=== PATIENT | male | born 1950 | race Caucasian/White ===

== ENCOUNTER 2023-02-10 14:02 | Inpatient (IN) | payer MEDICARE, OTHER ==
[~2023-02-10] VITALS: Ht 172.7 cm; Wt 97.5 kg
[2023-02-10] MEDS ORDERED: POLY17PO4 PO (14:49)
[2023-02-10] MEDS ORDERED: CARV3.12 PO (14:49)
[2023-02-10] MEDS ORDERED: TIMO10DR31 EACHEYE (14:49)
[2023-02-10] MEDS ORDERED: ATOR40TA PO (14:49)
[2023-02-10] MEDS ORDERED: AMLO2.5T2 PO (14:49)
[2023-02-10] MEDS ORDERED: FLUD0.1T3 PO (14:49)
[2023-02-10] MEDS ORDERED: SERT50TA PO (14:49)
[2023-02-10] MEDS ORDERED: TRELEGY IH (14:49)
[2023-02-10] MEDS ORDERED: FLUT16SP BNOSTRILS (14:49)
[2023-02-10] MEDS ORDERED: LOTE5DRO3 LEFTEYE (14:49)
[2023-02-10] MEDS ORDERED: ROFL500T PO (14:49)
[2023-02-10] MEDS ORDERED: PSYL3.4P6 PO (14:49)
[2023-02-10] MEDS ORDERED: DICY20TA11 PO (14:49)
[2023-02-10] MEDS ORDERED: VALA100026 PO (14:49)
[2023-02-10] MEDS ORDERED: OMEP20CA15 PO (14:49)
[2023-02-10] MEDS ORDERED: LOSA50TA39 PO (14:49)
[2023-02-10] MEDS ORDERED: MULT-1196 PO (14:49)
[2023-02-10] MEDS ORDERED: ALBU8.5H8 IH (14:49)
[2023-02-10] MEDS ORDERED: Z GUARD REMEDY 4 OZ OINT TP PRN ×2 (15:00→16:45)
[2023-02-10] MEDS ORDERED: MAG HYDROX/AL HYDROX/SIMETH 30 ML UDC PO PRN ×2 (15:00→16:45)
[2023-02-10] MEDS ORDERED: MAGNESIUM HYDROXIDE 30 ML UDC PO PRN ×2 (15:00→16:45)
[2023-02-10] MEDS ORDERED: ONDANSETRON HCL/PF 4 MG/2 ML VIAL IVP PRN ×2 (15:00→16:45)
[2023-02-10] MEDS ORDERED: ENOXAPARIN SODIUM 40 MG/0.4 ML DISP.SYRIN SQ SCH (15:00)
[2023-02-10] MEDS ORDERED: ACETAMINOPHEN 325 MG TABLET PO PRN ×2 (15:00→16:45)
[2023-02-10 15:17] LABS: CALCIUM, SERUM 8.7 mg/dL (8.5-10.1); CREATININE 0.9 mg/dL (0.6-1.3); POTASSIUM 3.7 mmol/L (3.5-5.1)
[2023-02-10 15:26] LABS: BASOPHILS % (AUTO) 0.3 % (0.0-2.0); EOSINOPHILS # (AUTO) 0.1 K/uL (0.0-0.7); EOSINOPHILS % (AUTO) 1.8 % (0.0-6.0); HEMATOCRIT 37 % (39-51); HEMOGLOBIN 12.1 g/dL (13.5-17.5); LYMPHOCYTES # (AUTO) 1.5 K/uL (0.8-4.8); LYMPHOCYTES % (AUTO) 19.7 % (20.0-44.0); MEAN CORPUSCULAR HEMOGLOBIN 29 PG (26.0-33.0); MEAN CORPUSCULAR HGB CONC 33 g/dl (31.0-36.0); MEAN CORPUSCULAR VOLUME 88 fL (80-96); MONOCYTES % (AUTO) 13.6 % (2.0-12.0); NEUTROPHILS # (AUTO) 4.8 K/uL (1.8-8.9); NEUTROPHILS % (AUTO) 64.6 % (43.0-81.0); PLATELET COUNT (AUTO) 161 K/uL (150-450); RED BLOOD CELL COUNT(AUTO) 4.17 MIL/uL (4.5-6.0); RED CELL DISTRIBUTION WIDTH 22.9 % (11.5-15.0); WHITE BLOOD COUNT (AUTO) 7.5 K/uL (4.3-11.0)
[2023-02-10 17:00] VITALS: BP 152/78; TEMP 98.2; O2SAT 99
[2023-02-10] MEDS: ENOXAPARIN SODIUM 40 MG/0.4 ML DISP.SYRIN SQ SCH (17:28)
[2023-02-10] MEDS ORDERED: VANCOMYCIN 1.5 GM in IV D5W 500ml IV ONE (18:00)
[2023-02-10 20:00] VITALS: BP 154/70; TEMP 97.9; O2SAT 98
[2023-02-10] MEDS ORDERED: ALBUTEROL SULFATE 8 GM HFA.AER.AD IH PRN (21:30)
[2023-02-10] MEDS ORDERED: POLYETHYLENE GLYCOL 3350 17 GM POWD.PACK PO PRN (21:30)
[2023-02-10] MEDS ORDERED: SERTRALINE HCL 50 MG TABLET PO PRN (21:30)
[2023-02-10] MEDS: FLUDROCORTISONE 0.1 MG TABLET PO SCH (21:43)
[2023-02-10] MEDS: ATORVASTATIN 40 MG TABLET PO SCH (21:43)
[2023-02-10] MEDS: CARVEDILOL 3.125 MG TABLET PO SCH (21:43)
[2023-02-10] MEDS ORDERED: DICYCLOMINE HCL 10 MG CAPSULE PO PRN (22:00)
[2023-02-11] MEDS ORDERED: TRAZODONE 50 MG TABLET PO ONE (00:30)
[2023-02-11] MEDS: VANCOMYCIN 1 GM in IV D5W 250ml IV SCH ×2 (06:04→17:30)
[2023-02-11 07:30] VITALS: BP 163/68; TEMP 97.7; O2SAT 98
[2023-02-11] MEDS ORDERED: ALBUTEROL FS 2.5 MG/3 ML VIAL.NEB IH PRN (07:30)
[2023-02-11] MEDS ORDERED: PANTOPRAZOLE 40 MG TABLET.DR PO SCH ×2 (07:30)
[2023-02-11] MEDS: PSYLLIUM SEED 1 PKT PACKET PO SCH ×2 (08:40→08:55)
[2023-02-11] MEDS: CARVEDILOL 3.125 MG TABLET PO SCH ×2 (08:40→16:29)
[2023-02-11] MEDS: PANTOPRAZOLE 40 MG TABLET.DR PO SCH (08:40)
[2023-02-11] MEDS: LOSARTAN POTASSIUM 50 MG TABLET PO SCH (08:41)
[2023-02-11] MEDS: FLUDROCORTISONE 0.1 MG TABLET PO SCH ×2 (08:41→16:30)
[2023-02-11] MEDS: MULTIVIT W/MINERALS 1 TAB TABLET PO SCH (08:41)
[2023-02-11] MEDS: ASPIRIN 81 MG TAB.CHEW PO SCH (08:41)
[2023-02-11] MEDS: FLUTICASONE PROPIONATE 16 GM BOTTLE NS SCH ×2 (08:43→16:40)
[2023-02-11] MEDS: TIMOLOL 0.5% SOLN OPHTH 5 ML BOTTLE EACHEYE SCH ×2 (08:43→16:40)
[2023-02-11] MEDS ORDERED: AMLODIPINE BESYLATE 2.5 MG TABLET PO SCH (09:00)
[2023-02-11] MEDS ORDERED: ROFLUMILAST 500 MCG PO SCH (09:00)
[2023-02-11] MEDS ORDERED: ATORVASTATIN 40 MG TABLET PO SCH (09:00)
[2023-02-11] MEDS ORDERED: TRELEGY IH SCH (09:00)
[2023-02-11] MEDS ORDERED: LOTEPREDNOL ETABONATE 5 ML BOTTLE LEFTEYE SCH ×2 (09:00)
[2023-02-11] MEDS ORDERED: CARVEDILOL 3.125 MG TABLET PO SCH (09:00)
[2023-02-11] MEDS ORDERED: FLUDROCORTISONE 0.1 MG TABLET PO SCH (09:00)
[2023-02-11 11:57] LABS: CALCIUM, SERUM 8.8 mg/dL (8.5-10.1); CREATININE 0.8 mg/dL (0.6-1.3); POTASSIUM 3.2 mmol/L (3.5-5.1)
[2023-02-11] MEDS: IPRATROPIUM NEB FS 0.5 MG/2.5 ML AMPUL.NEB NEB SCH ×2 (13:30→20:22)
[2023-02-11] MEDS: ALBUTEROL FS 2.5 MG/0.5 ML VIAL.NEB NEB SCH ×2 (13:30→20:22)
[2023-02-11 16:00] VITALS: BP 160/72; TEMP 98.2; O2SAT 97
[2023-02-11] MEDS: POTASSIUM CHLORIDE 20 MEQ TAB.PRT.SR PO SCH ×2 (16:29→17:30)
[2023-02-11] MEDS: ENOXAPARIN SODIUM 40 MG/0.4 ML DISP.SYRIN SQ SCH (16:31)
[2023-02-11 19:30] VITALS: BP 153/80; TEMP 97.8; O2SAT 98
[2023-02-11 20:00] VITALS: BP 153/80; TEMP 97.8; O2SAT 98
[2023-02-11 20:23] VITALS: O2SAT 96
[2023-02-11] MEDS: BUDESONIDE RESPULE INH 0.5 MG/2 ML AMPUL.NEB NEB SCH (20:23)
[2023-02-11 20:33] VITALS: O2SAT 99
[2023-02-11] MEDS: ATORVASTATIN 40 MG TABLET PO SCH (21:21)
[2023-02-12] MEDS: IPRATROPIUM NEB FS 0.5 MG/2.5 ML AMPUL.NEB NEB SCH ×3 (01:27→13:01)
[2023-02-12] MEDS: ALBUTEROL FS 2.5 MG/0.5 ML VIAL.NEB NEB SCH ×3 (01:27→13:02)
[2023-02-12 05:53] LABS: BASOPHILS % (AUTO) 0.3 % (0.0-2.0); EOSINOPHILS # (AUTO) 0.2 K/uL (0.0-0.7); EOSINOPHILS % (AUTO) 2.5 % (0.0-6.0); HEMATOCRIT 36 % (39-51); HEMOGLOBIN 12.2 g/dL (13.5-17.5); LYMPHOCYTES # (AUTO) 1.9 K/uL (0.8-4.8); LYMPHOCYTES % (AUTO) 24.1 % (20.0-44.0); MEAN CORPUSCULAR HEMOGLOBIN 30 PG (26.0-33.0); MEAN CORPUSCULAR HGB CONC 34 g/dl (31.0-36.0); MEAN CORPUSCULAR VOLUME 87 fL (80-96); MONOCYTES % (AUTO) 12.5 % (2.0-12.0); NEUTROPHILS # (AUTO) 4.7 K/uL (1.8-8.9); NEUTROPHILS % (AUTO) 60.6 % (43.0-81.0); PLATELET COUNT (AUTO) 159 K/uL (150-450); RED BLOOD CELL COUNT(AUTO) 4.11 MIL/uL (4.5-6.0); RED CELL DISTRIBUTION WIDTH 22.3 % (11.5-15.0); WHITE BLOOD COUNT (AUTO) 7.7 K/uL (4.3-11.0)
[2023-02-12 06:09] LABS: CALCIUM, SERUM 8.5 mg/dL (8.5-10.1); CARBON DIOXIDE 29 mmol/L (21-32); CHLORIDE 103 mmol/L (98-107); CREATININE 0.8 mg/dL (0.6-1.3); GLUCOSE 104 mg/dL (74-106); MAGNESIUM 2.1 mg/dL (1.8-2.4); PHOSPHORUS 3.3 mg/dL (2.5-4.9); POTASSIUM 3.2 mmol/L (3.5-5.1); SODIUM SERUM 137 mmol/L (136-145); UREA NITROGEN, BLOOD 13 mg/dL (7-18)
[2023-02-12] MEDS: VANCOMYCIN 1 GM in IV D5W 250ml IV SCH (06:30)
[2023-02-12 07:10] VITALS: O2SAT 95
[2023-02-12] MEDS: BUDESONIDE RESPULE INH 0.5 MG/2 ML AMPUL.NEB NEB SCH (07:13)
[2023-02-12 07:20] VITALS: O2SAT 100; O2SAT 98
[2023-02-12] MEDS: PANTOPRAZOLE 40 MG TABLET.DR PO SCH (07:42)
[2023-02-12 08:00] VITALS: BP 129/83; TEMP 98.2; O2SAT 100
[2023-02-12] MEDS: PSYLLIUM SEED 1 PKT PACKET PO SCH (09:00)
[2023-02-12] MEDS: MULTIVIT W/MINERALS 1 TAB TABLET PO SCH (09:23)
[2023-02-12] MEDS: FLUDROCORTISONE 0.1 MG TABLET PO SCH (09:24)
[2023-02-12] MEDS: LOSARTAN POTASSIUM 50 MG TABLET PO SCH (09:24)
[2023-02-12] MEDS: ASPIRIN 81 MG TAB.CHEW PO SCH (09:24)
[2023-02-12 09:25] VITALS: BP 129/83
[2023-02-12] MEDS: CARVEDILOL 3.125 MG TABLET PO SCH (09:25)
[2023-02-12] MEDS: FLUTICASONE PROPIONATE 16 GM BOTTLE NS SCH (09:26)
[2023-02-12] MEDS: TIMOLOL 0.5% SOLN OPHTH 5 ML BOTTLE EACHEYE SCH (09:27)
[2023-02-12] MEDS ORDERED: POTASSIUM CHLORIDE 20 MEQ POWDER PACKET PO ONE (10:00)
[2023-02-12 12:50] VITALS: O2SAT 96
[2023-02-12 13:00] VITALS: O2SAT 97; O2SAT 99
[2023-02-12] MEDS ORDERED: ASPI-1169 PO (13:40)
[2023-02-12] MEDS ORDERED: CEPH500C2 PO (13:46)
== END 2023-02-12 16:50 | disposition home health service (06) | DRG 603 ==
LOC: ER 14:08 → MED 16:51
PROVIDERS: ATTEND Nurse Practitioner Acute Care
DX: L03.115 Cellulitis of right lower limb (principal); G11.9 Hereditary ataxia, unspecified; K86.1 Other chronic pancreatitis; L03.116 Cellulitis of left lower limb; J44.9 Chronic obstructive pulmonary disease, unspecified; B19.20 Unspecified viral hepatitis C without hepatic coma; I10 Essential (primary) hypertension; Z79.51 Long term (current) use of inhaled steroids; Z79.899 Other long term (current) drug therapy; I25.10 Atherosclerotic heart disease of native coronary artery without angina pectoris; Z95.5 Presence of coronary angioplasty implant and graft; Z96.643 Presence of artificial hip joint, bilateral; Z90.49 Acquired absence of other specified parts of digestive tract; Z86.73 Personal history of transient ischemic attack (TIA), and cerebral infarction without residual deficits; E78.5 Hyperlipidemia, unspecified; Z86.19 Personal history of other infectious and parasitic diseases; R33.9 Retention of urine, unspecified; R73.03 Prediabetes; Z87.891 Personal history of nicotine dependence; I95.1 Orthostatic hypotension; T38.0X5A Adverse effect of glucocorticoids and synthetic analogues, initial encounter; Y92.9 Unspecified place or not applicable; Z98.1 Arthrodesis status; I87.8 Other specified disorders of veins; F12.90 Cannabis use, unspecified, uncomplicated
CPT/HCPCS: 36415; 80048-TC; 80202-TC; 83735-TC; 84100-TC; 85025-TC; 85652-TC; 93307-TC; 94799-TC; 97112-TC; 97116-TC; 97530-TC; A4223; G0378; J1650; J3370; J7030; J7060